=== PATIENT | female | born 2005 | race Caucasian/White ===

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

== ENCOUNTER 2024-02-06 21:11 | Emergency (ER) | payer OTHER ==
[~2024-02-06] VITALS: Ht 172.7 cm; Wt 100.2 kg
[~2024-02-06 21:11] MED LIST changes: +SULTRIDS PO
[2024-02-06 21:16] VITALS: BP 152/85
== END 2024-02-06 23:10 | disposition home or self-care (01) ==
LOC: ER 21:11
DX: F41.9 Anxiety disorder, unspecified (principal); Z79.899 Other long term (current) drug therapy
CPT/HCPCS: 93005; 93010; 99284-25

== ENCOUNTER 2025-04-11 03:35 | Emergency (ER) | payer OTHER ==
[~2025-04-11] VITALS: Ht 172.7 cm; Wt 106.6 kg
[2025-04-11 04:02] VITALS: BP 146/83
== END 2025-04-11 04:13 | disposition left against medical advice (07) ==
LOC: ER 03:35
DX: H92.01 Otalgia, right ear (principal); Z53.21 Procedure and treatment not carried out due to patient leaving prior to being seen by health care provider